=== PATIENT | male | born 1960 | race Two or more races ===

== ENCOUNTER 2024-12-23 11:06 | Outpatient (CLI) | payer OTHER ==
[2024-12-23 11:41] LABS: Chloride 105 mmol/L (98-107); Potassium 4.0 mmol/L (3.5-5.1); Sodium 141 mmol/L (136-145)
[2024-12-23 11:42] LABS: Calcium 8.7 mg/dL (8.7-10.4)
[2024-12-23 11:47] LABS: BUN/Creatinine Ratio 19.3 (10.0-20.0); Blood Urea Nitrogen 17 mg/dL (9-23)
[2024-12-23 11:53] LABS: Glucose 177 mg/dL (74-106)
[2024-12-23 12:18] LABS: Anion Gap 7 (5-15); Carbon Dioxide 29 mmol/L (20-31)
== END 2024-12-26 17:00 | disposition home or self-care (01) ==
LOC: LAB 11:06
PROVIDERS: ATTEND Internal Medicine
DX: E83.51 Hypocalcemia (principal)
CPT/HCPCS: 36415; 80048